=== PATIENT | male | born 1995 | race American Indian/Alaskan Native ===

== ENCOUNTER 2017-08-02 06:27 | Emergency (ER) | payer BC ==
[2017-08-02] MEDS ORDERED: Sodium Chloride 0.9% 1,000 ML IV ONE (07:37)
[2017-08-02] MEDS ORDERED: Sodium Chloride 0.9% 1,000 ML ONE (07:47)
[2017-08-02 08:09] LABS: BASO % 0.4 % (0.0-2.0); HEMOGLOBIN 15.5 g/dL (12.0-18.0); LYMPH # 0.3 K/uL (1.0-4.3); LYMPH % 7.9 % (20.0-40.0); MEAN CELL VOLUME 86.1 fL (80.0-94.0); MEAN CORPUSCULAR HEMOGLOBIN 29.6 pg (27.0-31.0); MEAN CORPUSCULAR HGB CONC 34.4 g/dL (33.0-37.0); MEAN PLATELET VOLUME 9.2 fL (7.2-11.7); MONO # 0.3 K/uL (0.0-0.8); MONO % 5.7 % (0.0-10.0); NEUT # 3.8 K/uL (1.8-7.0); PLATELET COUNT 173 K/uL (130-400); RBC 5.23 Mil/uL (4.40-5.90); WHITE BLOOD COUNT 4.4 K/uL (4.8-10.8)
[2017-08-02 08:13] LABS: SQUAMOUS EPITHIAL < 1 /hpf (0-5); URINE BILIRUBIN NEGATIVE (NEGATIVE); URINE BLOOD NEGATIVE (NEGATIVE); URINE CLARITY Clear (Clear); URINE COLOR Yellow (YELLOW); URINE GLUCOSE (UA) NORMAL (Normal); URINE LEUKOCYTE ESTERASE NEG Leu/uL (Negative); URINE PROTEIN 1+ mg/dL (NEGATIVE)
--- NOTE | 2017-08-02 08:19 | C.PDOC ---
History Of Present Illness Patient reports 1 day history of lower back pain radiating into abdomen denies fever, chill, nausea or vomiting. Time Seen by Provider: 08/02/17 07:12 Chief Complaint (Nursing): Abdominal Pain History Per: Patient Current Symptoms Are (Timing): Still Present Severity: Mild Location Of Pain/Discomfort: Diffuse Radiation Of Pain To:: None Quality Of Discomfort: Aching Exacerbating Factors: None Alleviating Factors: None Recent travel outside of the [place]: No Additional History Per: Patient Past Medical History Reviewed: Historical Data, Nursing Documentation, Vital Signs Vital Signs: Last Vital Signs Temp 98.7 F 08/02/17 08:46 Pulse 86 08/02/17 08:46 Resp 18 08/02/17 08:46 BP 116/62 08/02/17 08:46 Pulse Ox 100 08/02/17 08:46 - Medical History PMH: No Chronic Diseases Surgical History: No Surg Hx Family History: States: No Known Family Hx - Social History Hx Alcohol Use: No Hx Substance Use: No - Immunization History Hx Tetanus Toxoid Vaccination: No Hx Influenza Vaccination: No Hx Pneumococcal Vaccination: No Review Of Systems Constitutional: Negative for: Fever Respiratory: Negative for: Shortness of Breath Gastrointestinal: Positive for: Abdominal Pain Genitourinary: Negative for: Dysuria Musculoskeletal: Positive for: Back Pain Physical Exam - Physical Exam Appears: Well, Non-toxic Skin: Normal Color Head: Atraumatic Neck: Normal, Normal ROM Chest: Symmetrical Cardiovascular: Rhythm Regular Respiratory: Normal Breath Sounds Gastrointestinal/Abdominal: Normal Exam, No Tenderness Back: No CVA Tenderness Extremity: Normal ROM Neurological/Psych: Oriented x3 Gait: Steady ED Course And Treatment - Laboratory Results Result Diagrams: 08/02/17 08:05 08/02/17 08:05 Lab Interpretation: Normal O2 Sat by Pulse Oximetry: 98 Pulse Ox Interpretation: Normal Progress Note: Treated with IVF NSS and toradol. On re-evaluation feeling better, abdomen soft non-tender Reassessment Condition: Improved Disposition Counseled Patient/Family Regarding: Studies Performed, Diagnosis, Need For Followup, Rx Given - Disposition Referrals: [facility] [Outside] [facility] [Outside] Disposition: HOME/ ROUTINE Disposition Time: 09:00 Condition: STABLE Prescriptions: Ibuprofen [Motrin] 1 tab PO TID PRN #16 tab PRN Reason: Pain Instructions: Low Back Pain (DC), Acute Abdomen (Belly Pain), Back Exercises Forms: [facility] (S[place]i) - POA Present On Arrival: None - Clinical Impression Clinical Impression: Abdominal pain, Back ache
[2017-08-02 08:21] LABS: ALB/GLOB RATIO 1.5 (1.0-2.1); ALBUMIN 4.8 g/dL (3.5-5.0); ALT/SGPT 44 U/L (21-72); AST/SGOT 40 U/L (17-59); BLOOD UREA NITROGEN 13 mg/dL (9-20); CALCIUM 9.4 mg/dl (8.6-10.4); GFR AFRICAN-AMERICAN > 60; GFR NON-AFRICAN AMERICAN > 60; LIPASE 21 U/L (23-300)
[2017-08-02 08:47] VITALS: BP 116/62; PULSE 86; RESP 18; TEMP 98.7
[2017-08-02 09:16] LABS: LYMPHOCYTE 4 % (20-40); MONOCYTE 6 % (0-10); NEUTROPHIL 90 % (50-75); TOTAL CELLS COUNTED 100
[2017-08-02 09:17] LABS: PLATELET ESTIMATE NORMAL (NORMAL)
[2017-08-02 17:40] VITALS: O2SAT 98
== END 2017-08-02 08:53 | disposition home or self-care (01) ==
LOC: C.ER 06:27
DX: R10.9 Unspecified abdominal pain (principal); M54.9 Dorsalgia, unspecified
CPT/HCPCS: 80053; 81001; 83690; 85025; 96361; 96374; 99285; J1885; J7030

== ENCOUNTER 2018-06-26 00:10 | Emergency (ER) | payer BC ==
[2018-06-26 02:03] LABS: URINE BILIRUBIN NEGATIVE (NEGATIVE); URINE BLOOD NEGATIVE (NEGATIVE); URINE CLARITY Clear (Clear); URINE COLOR Yellow (YELLOW); URINE GLUCOSE (UA) NORMAL (Normal); URINE LEUKOCYTE ESTERASE NEG Leu/uL (Negative); URINE PROTEIN NEGATIVE (NEGATIVE)
--- NOTE | 2018-06-26 02:14 | C.PDOC ---
History Of Present Illness 22 year old male presents complaining of lower back pain. Patient reports he has had the pain multiple times before in the past and it usually resolves with motrin, however, this time he felt a lot of pain and did not take anything for it. He does not remember doing anything to aggravate the pain. He notes the pain increased with movement, when he turns, and when he walks. Denies changes in urination or pain radiating to the abdomen. Time Seen by Provider: 06/26/18 00:43 Chief Complaint (Nursing): Back Pain History Per: Patient History/Exam Limitations: no limitations Onset/Duration Of Symptoms: Hrs Current Symptoms Are (Timing): Still Present Quality Of Discomfort: Unable To Describe Previous Symptoms: Chronic Pain Associated Symptoms: None Exacerbating Factor(s): Turning, Movement, Other (Walking) Recent travel outside of the [place]: No Past Medical History Reviewed: Historical Data, Nursing Documentation, Vital Signs Vital Signs: Last Vital Signs Temp 99.0 F 06/26/18 00:20 Pulse 89 06/26/18 00:20 Resp 20 06/26/18 00:20 BP 116/75 06/26/18 00:20 Pulse Ox 99 06/26/18 00:20 Primary Care Provider: FAMILY PROVIDER,NO Family History: States: Unknown Family Hx - Social History Hx Alcohol Use: No Hx Substance Use: No - Immunization History Hx Tetanus Toxoid Vaccination: No Hx Influenza Vaccination: No Hx Pneumococcal Vaccination: No Review Of Systems Gastrointestinal: Negative for: Abdominal Pain Genitourinary: Negative for: Dysuria, Incontinence, Hematuria Musculoskeletal: Positive for: Back Pain Neurological: Negative for: Weakness, Numbness Physical Exam - Physical Exam Appears: Well, Non-toxic, No Acute Distress Skin: Normal Color, Warm Head: Atraumatic, Normacephalic Eye(s): bilateral: Normal Inspection Gastrointestinal/Abdominal: Soft, No Tenderness Back: No Vertebral Tenderness, Paraspinal Tenderness (Bilateral paralumbar), Straight Leg Raising (Positive bilaterally) Extremity: Normal ROM (x4) Neurological/Psych: Oriented x3, Normal Speech, Normal Motor, Normal Sensation ED Course And Treatment - Laboratory Results Lab Results: Urine Color Yellow (YELLOW) 06/26/18 01:53 Urine Clarity Clear (Clear) 06/26/18 01:53 Urine pH 8.0 (5.0-8.0) 06/26/18 01:53 Ur Specific [place] 1.024 (1.003-1.030) 06/26/18 01:53 Urine Protein Negative mg/dL (NEGATIVE) 06/26/18 01:53 Urine Glucose (UA) Normal mg/dL (Normal) 06/26/18 01:53 Urine Ketones 2+ mg/dL (NEGATIVE) H 06/26/18 01:53 Urine Blood Negative (NEGATIVE) 06/26/18 01:53 Urine Nitrate Negative (NEGATIVE) 06/26/18 01:53 Urine Bilirubin Negative (NEGATIVE) 06/26/18 01:53 Urine Urobilinogen 4.0 mg/dL (0.2-1.0) 06/26/18 01:53 Ur Leukocyte Esterase Neg [place]/uL (Negative) 06/26/18 01:53 Urine WBC (Auto) 1 /hpf (0-5) 06/26/18 01:53 Urine RBC (Auto) 4 /hpf (0-3) H 06/26/18 01:53 O2 Sat by Pulse Oximetry: 99 (Room air) Pulse Ox Interpretation: Normal Medical Decision Making Medical Decision Making: Patient reports improvement of pain after toradol and flexeril, ortho referral given at patient's request. Patient is ambulating with upright steady gait, stable for discharge to follow up with primary. Disposition Counseled Patient/Family Regarding: Diagnosis, Need For Followup, Rx Given - Disposition Referrals: Joey Dixon III, MD [Staff Provider] - Gary Duarte MD [Staff Provider] - [facility] [Outside] Disposition: HOME/ ROUTINE Disposition Time: 02:12 Condition: IMPROVED Prescriptions: Ibuprofen [Motrin Tab] 800 mg PO TID PRN #21 tab PRN Reason: Pain, Moderate (4-7) traMADol [Ultram] 50 mg PO BID PRN #10 tab PRN Reason: Pain, Severe (8-10) Instructions: Low Back Pain in Adults Forms: General Discharge Instructions, [facility] (Ugandan), Work Excuse - Clinical Impression Clinical Impression: Low back pain - PA / [place] BAIL[employer] / Resident Statement MD/DO has reviewed & agrees with the documentation as recorded. - Scribe Statement The provider has reviewed the documentation as recorded by the Scribe Edmond Sargent All medical record entries made by the Scribe were at my direction and personally dictated by me. I have reviewed the chart and agree that the record accurately reflects my personal performance of the history, physical exam, medical decision making, and the department course for this patient. I have also personally directed, reviewed, and agree with the discharge instructions and disposition.
[2018-06-26 02:16] VITALS: BP 109/54; PULSE 111; TEMP 99
[2018-06-26 02:45] VITALS: RESP 18
[2018-06-26 02:47] VITALS: O2SAT 99
== END 2018-06-26 02:37 | disposition home or self-care (01) ==
LOC: C.ER 00:10
DX: M54.5 Low back pain (principal)
CPT/HCPCS: 81001; 96372; 99284; J1885